=== PATIENT | male | born 1970 | race African-American/Black ===

== ENCOUNTER 2016-09-30 12:19 | Emergency (ER) | payer OTHER ==
[2016-09-30 12:29] VITALS: BP 122/76; PULSE 76; TEMP 97.8; BMI 21.7
[2016-09-30] MEDS ORDERED: KETOROLAC TROMETHAMINE 60 MG/2 ML VIAL IM ONE (13:28)
[2016-09-30] MEDS ORDERED: ALBUTEROL SO4 2.5/IPRATROPIUM 0.5 INH SOL 3 ML VIAL.NEB. NEB ONE ×2 (13:28→13:29)
[2016-09-30] MEDS ORDERED: KETOROLAC TROMETHAMINE 60 MG/2 ML VIAL ONE (13:28)
--- NOTE | 2016-09-30 14:29 | PDOC ---
History of Present Illness - General Chief Complaint: Respiratory Stated Complaint: CHEST PAIN, COUGH Time Seen by Provider: 09/30/16 13:08 History Source: Patient Exam Limitations: No Limitations - History of Present Illness Initial Comments: 09/30/16 14:24 CC right sided chest post fall on outstretched arms x 3 days ago; pain increased post new cough and asthma symptoms Timing/Duration: reports: getting worse Severity: reports: mild Possible Cause: Yes: chronic episodes Modifying Factors: improves with: albuterol inhaler Associated Symptoms: reports: chest pain/soreness. denies: fever/chills, sore throat Past History - Past Medical History Allergies/Adverse Reactions: Allergies Allergy/AdvReac Type Severity Reaction Status Date / Time metaproterenol sulfate Allergy Vomiting Verified 09/30/16 12:25 [From Alupent] bactrim AdvReac Uncoded 09/30/16 12:25 Home Medications: Ambulatory Orders Albuterol Sulfate Inhaler - [Ventolin HFA Inhaler -] 2 inh PO Q4H PRN 06/12/14 Gabapentin [Neurontin] 600 mg PO TID 06/12/14 Asthma: Yes Cancer: No Cardiac Disorders: Yes (murmur) CVA: No COPD: No CHF: No Dementia: No Diabetes: No GI Disorders: No Disorders: No HTN: No Hypercholesterolemia: No Liver Disease: No Seizures: No Thyroid Disease: No - Surgical History Neurologic Surgery: No Orthopedic Surgery: Yes (left forearm with metal plate) - Psycho/Social/Smoking Cessation Hx Anxiety: No Suicidal Ideation: No Smoking Status: Yes Smoking History: Current some day smoker Number of Cigarettes Smoked Daily: 3 Information on smoking cessation initiated: No Hx Alcohol Use: No Drug/Substance Use Hx: No Substance Use Type: Marijuana Hx Substance Use Treatment: Yes ([facility]) Review of Systems - Review of Systems Constitutional: No: Chills, Fever, Malaise HEENTM: Yes: Nose Pain, Nose Congestion Respiratory: Yes: Cough, Wheezing Cardiac (ROS): Yes: Chest Pain (with movement, and cough) ABD/GI: No: Symptoms Reported *Physical Exam - Vital Signs Last Vital Signs Temp Pulse Resp BP Pulse Ox 97.8 F 76 18 122/76 95 09/30/16 12:25 09/30/16 12:25 09/30/16 12:25 09/30/16 12:25 09/30/16 12:25 - Physical Exam General Appearance: Yes: Appropriately Dressed. No: Apparent Distress HEENT: positive: TMs Normal, Pharynx Normal, Nasal Congestion, Rhinorrhea Neck: positive: Supple. negative: Tender, Rigid Respiratory/Chest: positive: Chest Tender (right, anterior , upper CW; no brusing), Wheezing. negative: Lungs Clear, Normal Breath Sounds, Respiratory Distress, Accessory Muscle Use, Paradoxal Breathing, Dullness Cardiovascular: positive: Regular Rhythm, Regular Rate. negative: Murmur Gastrointestinal/Abdominal: positive: Soft. negative: Tender Integumentary: negative: Bruising Neurologic: positive: Alert, Normal Mood/Affect ED Treatment Course - RADIOLOGY Radiology Studies Ordered: Category Date Time Status CHEST PA & LAT [RAD] Stat Radiology 09/30/16 13:30 Taken - Medications Given in the ED: ED Medications Discontinued Medications Generic Name Dose Route Start Last Admin Trade Name Freq PRN Reason Stop Dose Admin Albuterol/Ipratropium 1 amp 09/30/16 13:29 09/30/16 13:33 Duoneb - NEB 09/30/16 13:30 1 amp ONCE ONE Administration Ketorolac Tromethamine 60 mg 09/30/16 13:28 09/30/16 13:34 Toradol Injection - IM 09/30/16 13:29 60 mg ONCE ONE Administration Medical Decision Making - Medical Decision Making 09/30/16 14:28 xray= no changes from 08/2016; feeling better , no wheezing post toradol *DC/Admit/Observation/Transfer Diagnosis at time of Disposition: Chest wall muscle strain Qualifiers: Encounter type: initial encounter Qualified Code(s): S29.011A - Strain of muscle and tendon of front wall of thorax, initial encounter Asthma Qualifiers: Asthma severity: mild intermittent Asthma complication type: with acute exacerbation Qualified Code(s): J45.21 - Mild intermittent asthma with (acute) exacerbation - Discharge Dispostion Disposition: HOME Condition at time of disposition: Stable Admit: No - Patient Instructions Additional Instructions: rest; see local MD next week if no better - Post Discharge Activity Work/School Note: Back to Work
--- NOTE | 2016-10-03 22:14 | EKG ---
Test Reason : Blood Pressure : / mmHG Vent. Rate : 074 BPM Atrial Rate : 074 BPM P-R Int : 150 ms QRS Dur : 086 ms QT Int : 374 ms P-R-T Axes : 074 074 043 degrees QTc Int : 415 ms POOR DATA QUALITY, INTERPRETATION MAY BE ADVERSELY AFFECTED NORMAL SINUS RHYTHM POSSIBLE LEFT ATRIAL ENLARGEMENT LEFT VENTRICULAR HYPERTROPHY WITH REPOLARIZATION ABNORMALITY PROMINENT T WAVE AMPLITUDE ABNORMAL ECG WHEN COMPARED WITH ECG OF 12-AUG-2016 13:09, ST LESS ELEVATED IN ANTERIOR LEADS Confirmed by MILA CASON MD ([id number]) on 10/03/2016 10:14:23 PM Referred By: Confirmed By:MILA CASON MD
== END 2016-09-30 14:45 | disposition home or self-care (01) ==
LOC: JERFT 12:19
PROC: 3E0F7GC Introduction of Other Therapeutic Substance into Respiratory Tract, Via Natural or Artificial Opening (ICD-10-PCS; principal; 2016-09-30)
PROC: 3E0233Z Introduction of Anti-inflammatory into Muscle, Percutaneous Approach (ICD-10-PCS; 2016-09-30)
DX: S29.011A Strain of muscle and tendon of front wall of thorax, initial encounter (principal); J45.21 Mild intermittent asthma with (acute) exacerbation; W18.39XA Other fall on same level, initial encounter; Y93.89 Activity, other specified; Y92.89 Other specified places as the place of occurrence of the external cause
CPT/HCPCS: 71020-TC; 93005; 93010; 99281-25

== ENCOUNTER 2017-03-09 13:43 | Emergency (ER) | payer OTHER ==
[2017-03-09 14:04] VITALS: TEMP 98.2; BMI 20.3
[2017-03-09] MEDS ORDERED: PANTOPRAZOLE SODIUM 40 MG in SODIUM CHLORIDE 100 ML IVPB ONE (14:13)
[2017-03-09] MEDS ORDERED: SODIUM CHLORIDE 1,000 ML IV STA (14:13)
[2017-03-09] MEDS ORDERED: ONDANSETRON 4 MG/2 ML VIAL IVPUSH ONE (14:13)
[2017-03-09 14:28] LABS: BASOPHIL 0.3 % (0-2.0); EOSINOPHIL 0.1 % (0-4.5); MCH 31.9 pg (25.7-33.7); MCHC 33.1 g/dl (32.0-35.9); MEAN CELL VOLUME 96.5 fl (80-96); MEAN PLT VOLUME 7.9 fl (7.5-11.1); PLATELET COUNT 221 K/MM3 (134-434); RDW 13.9 % (11.9-15.9); WHITE BLOOD COUNT 7.8 K/mm3 (4.0-10.0)
[2017-03-09] MEDS ORDERED: PANTOPRAZOLE SODIUM 100 ML IVPB ONE (14:30)
[2017-03-09] MEDS ORDERED: ONDANSETRON 4 MG/2 ML VIAL ONE (14:30)
[2017-03-09 14:50] LABS: URINE APPEARANCE CLEAR; URINE BILIRUBIN NEGATIVE (NEGATIVE); URINE BLOOD NEGATIVE (NEGATIVE); URINE COLOR LTYELLOW; URINE GLUCOSE (UA) NEGATIVE (NEGATIVE); URINE KETONE NEGATIVE (NEGATIVE); URINE LEUK ESTERASE NEGATIVE (NEGATIVE); URINE NITRITE NEGATIVE (NEGATIVE); URINE PROTEIN NEGATIVE (NEGATIVE); URINE UROBILINOGEN NEGATIVE mg/dL (0.2-1.0)
[2017-03-09 14:52] LABS: ALBUMIN 4.3 g/dl (3.4-5.0); ALK PHOS 90 U/L (45-117); ANION GAP 10 (8-16); BILIRUBIN,TOTAL 0.8 mg/dL (0.2-1.0); CALCIUM 9.2 mg/dL (8.5-10.1); CO2 28 mmol/L (21-32); CREATININE 1.1 mg/dL (0.7-1.3); GLUCOSE,RANDOM 91 mg/dL (74-106); SGOT/AST 20 U/L (15-37); SGPT/ALT 21 U/L (12-78); TOT PROT 7.7 g/dl (6.4-8.2)
[2017-03-09 15:16] LABS: URINE MARIJUANA THC POSITIVE ng/ml (CUTOFF=50)
--- NOTE | 2017-03-09 15:58 | PDOC ---
History of Present Illness - General Chief Complaint: Pain Stated Complaint: ABD PAIN Time Seen by Provider: 03/09/17 14:03 History Source: Patient Exam Limitations: No Limitations - History of Present Illness Travel History: No Initial Comments: 03/09/17 15:03 46-year-old male presents to the ED with complaints of abdominal cramping associated with diarrhea for the past 2 days. Patient states yesterday symptoms were severe but have decreased in severity but decided come to the ER for further evaluation. Patient states Tuesday night with shaking alcohol or constitution party and states he picked up some other persons drink that was laced with drugs. Patient states initially felt hyperactive but down and felt very lethargic yesterday. Patient denies fever, chills, chest pain, shortness of breath, headache, dizziness, dysuria, back pain, history of GI disorders. Timing/Duration: reports: changing over time (resolving) Quality: reports: mild, cramping Abdominal Pain Onset Location: reports: LLQ, epigastric, periumbilical Pain Radiation: reports: no radiation Activities at Onset: reports: none Aggravating Factors: improves with: None Alleviating Factors: improves with: None Past History - Past Medical History Allergies/Adverse Reactions: Allergies Allergy/AdvReac Type Severity Reaction Status Date / Time metaproterenol sulfate Allergy Vomiting Verified 09/30/16 12:25 [From Alupent] bactrim AdvReac Uncoded 09/30/16 12:25 Home Medications: Ambulatory Orders NK [No Known Home Medication] 03/09/17 Asthma: Yes Cancer: No Cardiac Disorders: Yes (murmur) CVA: No COPD: No CHF: No Dementia: No Diabetes: No GI Disorders: No Disorders: No HTN: No Hypercholesterolemia: No Liver Disease: No Seizures: No Thyroid Disease: No Other medical history: DEGENERATIVE JOINT DISEASE. NERVE PAIN TO NECK AND LOWER BACK. - Surgical History Neurologic Surgery: No Orthopedic Surgery: Yes (left forearm with metal plate) - Psycho/Social/Smoking Cessation Hx Anxiety: No Suicidal Ideation: No Smoking Status: Yes Smoking History: Current every day smoker Number of Cigarettes Smoked Daily: 4 Information on smoking cessation initiated: No Hx Alcohol Use: Yes Drug/Substance Use Hx: Yes (marijuana.) Substance Use Type: Alcohol, Marijuana Hx Substance Use Treatment: Yes ([facility]) Patient Lives Alone: No Lives with/in: spouse/SO Abd/GI Specific PMHX - Complaint Specific PMHX Colitis: No Diverticulitis: No Pancreatitis: No Review of Systems - Review of Systems Able to Perform ROS?: Yes Constitutional: No: Symptoms Reported HEENTM: No: Symptoms Reported Respiratory: No: Symptoms reported ABD/GI: Yes: Diarrhea, Abdominal cramping : No: Symptoms Reported Musculoskeletal: No: Symptoms Reported Integumentary: No: Symptoms Reported Neurological: No: Symptoms reported Endocrine: No: Symptoms Reported Hematologic/Lymphatic: No: Symptoms Reported *Physical Exam - Vital Signs Last Vital Signs Temp Pulse Resp BP Pulse Ox 98.2 F 66 18 119/60 100 03/09/17 13:52 03/09/17 13:52 03/09/17 13:52 03/09/17 13:52 03/09/17 13:52 - Physical Exam General Appearance: Yes: Nourished, Appropriately Dressed. No: Apparent Distress HEENT: positive: EOMI, JANNA (3 millimeters bilateral), Pharynx Normal. negative : Pale Conjunctivae Respiratory/Chest: positive: Lungs Clear, Normal Breath Sounds. negative: Respiratory Distress, Accessory Muscle Use Cardiovascular: positive: Regular Rhythm, Regular Rate. negative: Murmur Gastrointestinal/Abdominal: positive: Normal Bowel Sounds, Soft, Tenderness ( epigastric, left upper quadrant and left lower quadrant). negative: Distended, Guarding, Rebound ED Treatment Course - LABORATORY CBC & Chemistry Diagram: 03/09/17 14:10 03/09/17 14:10 - ADDITIONAL ORDERS Additional order review: Laboratory Results 03/09/17 03/09/17 03/09/17 14:21 14:21 14:10 Sodium Potassium Chloride Carbon Dioxide Anion Gap BUN Creatinine Creat Clearance w eGFR Random Glucose Calcium Total Bilirubin AST ALT Alkaline Phosphatase Total Protein Albumin Lipase 271 Urine Color Ltyellow Urine Appearance Clear Urine pH 7.0 Urine Protein Negative Urine Glucose (UA) Negative Urine Ketones Negative Urine Blood Negative Urine Nitrite Negative Urine Bilirubin Negative Urine Urobilinogen Negative Ur Leukocyte Esterase Negative Opiates Screen Negative Methadone Screen Negative Barbiturate Screen Negative Phencyclidine Screen Negative Ur Amphetamines Screen Negative MDMA (Ecstasy) Screen Negative Benzodiazepines Screen Negative Cocaine Screen Positive U Marijuana (THC) Screen Positive 03/09/17 14:10 Sodium 137 Potassium 3.9 Chloride 99 Carbon Dioxide 28 Anion Gap 10 BUN 12 D Creatinine 1.1 D Creat Clearance w eGFR > 60 Random Glucose 91 D Calcium 9.2 Total Bilirubin 0.8 AST 20 D ALT 21 D Alkaline Phosphatase 90 Total Protein 7.7 Albumin 4.3 Lipase Urine Color Urine Appearance Urine pH Urine Protein Urine Glucose (UA) Urine Ketones Urine Blood Urine Nitrite Urine Bilirubin Urine Urobilinogen Ur Leukocyte Esterase Opiates Screen Methadone Screen Barbiturate Screen Phencyclidine Screen Ur Amphetamines Screen MDMA (Ecstasy) Screen Benzodiazepines Screen Cocaine Screen U Marijuana (THC) Screen 03/09/17 14:10 RBC 4.54 MCV 96.5 H MCHC 33.1 RDW 13.9 MPV 7.9 Neutrophils % 76.0 Lymphocytes % 14.2 D Monocytes % 9.4 Eosinophils % 0.1 D Basophils % 0.3 - Medications Given in the ED: ED Medications Discontinued Medications Generic Name Dose Route Start Last Admin Trade Name Freq PRN Reason Stop Dose Admin Pantoprazole Sodium 40 mg/ 100 mls @ 200 mls/hr 03/09/17 14:13 03/09/17 14:36 Sodium Chloride IVPB 03/09/17 14:42 200 mls/hr ONCE ONE Administration Sodium Chloride 1,000 mls @ 1,000 mls/hr 03/09/17 14:13 03/09/17 14:36 Normal Saline - IV 03/09/17 15:12 1,000 mls/hr ASDIR STA Administration Ondansetron HCl 4 mg 03/09/17 14:13 03/09/17 14:36 Zofran Injection IVPUSH 03/09/17 14:14 4 mg ONCE ONE Administration Medical Decision Making - Medical Decision Making 03/09/17 15:07 Patient with complaints of sudden onset of abdominal cramping associated with diarrhea but has resolved slightly since yesterday. Patient concerned with Possible ingestion of illicit drugs. Patient requesting labs including drug toxicology. Patient also ordered for labs, Zofran and Protonix along with IV fluids. 03/09/17 15:58 Laboratory Tests 03/09/17 03/09/17 03/09/17 14:10 14:10 14:10 WBC 7.8 Hgb 14.5 D Hct 43.8 D Plt Count 221 Neutrophils % 76.0 Sodium 137 Potassium 3.9 Chloride 99 Carbon Dioxide 28 Anion Gap 10 BUN 12 D Creatinine 1.1 D Random Glucose 91 D Total Bilirubin 0.8 AST 20 D ALT 21 D Lipase 271 Urine Ketones Urine Nitrite Ur Leukocyte Esterase Opiates Screen Methadone Screen Barbiturate Screen Phencyclidine Screen Ur Amphetamines Screen MDMA (Ecstasy) Screen Benzodiazepines Screen Cocaine Screen U Marijuana (THC) Screen 03/09/17 03/09/17 14:21 14:21 WBC Hgb Hct Plt Count Neutrophils % Sodium Potassium Chloride Carbon Dioxide Anion Gap BUN Creatinine Random Glucose Total Bilirubin AST ALT Lipase Urine Ketones Negative Urine Nitrite Negative Ur Leukocyte Esterase Negative Opiates Screen Negative Methadone Screen Negative Barbiturate Screen Negative Phencyclidine Screen Negative Ur Amphetamines Screen Negative MDMA (Ecstasy) Screen Negative Benzodiazepines Screen Negative Cocaine Screen Positive U Marijuana (THC) Screen Positive Patient states feeling much better after receiving the above medications. Patient be discharged home with recommendations to push fluids and eat bland foods for the next 72 hours. *DC/Admit/Observation/Transfer Diagnosis at time of Disposition: Adverse effect of drug Qualifiers: Encounter type: initial encounter Qualified Code(s): T88.7XXA - Unspecified adverse effect of drug or medicament, initial encounter - Discharge Dispostion Disposition: HOME Condition at time of disposition: Improved - Referrals Referrals: Kaushik Solis [Primary Care Provider] - - Patient Instructions Printed Discharge Instructions: DI for Adverse Drug Reaction -- Other, DI for Adverse Drug Reaction -- GI Intolerance Additional Instructions: Please continue to push fluids and eat bland food for the next 3 days. Be careful in what you eat and drink at social gatherings.
[2017-03-09 16:17] VITALS: BP 116/74; PULSE 60
== END 2017-03-09 16:17 | disposition home or self-care (01) ==
LOC: JER 13:43
PROC: 3E033GC Introduction of Other Therapeutic Substance into Peripheral Vein, Percutaneous Approach (ICD-10-PCS; principal; 2017-03-09)
PROC: 3E0337Z Introduction of Electrolytic and Water Balance Substance into Peripheral Vein, Percutaneous Approach (ICD-10-PCS; 2017-03-09)
DX: T88.7XXA Unspecified adverse effect of drug or medicament, initial encounter (principal); X58.XXXA Exposure to other specified factors, initial encounter; Y93.89 Activity, other specified; Y92.9 Unspecified place or not applicable
CPT/HCPCS: 36415; 80053; 80307; 81003; 83690; 85025; 99283-25